=== PATIENT | male | born 1960 ===

== ENCOUNTER 2018-05-22 23:58 | Emergency (ER) | payer OTHER ==
--- NOTE | 2018-05-23 00:24 | C.PDOC ---
History Of Present Illness 58 year old male presents to the ED c/o acute urinary retention, last voided 4-5 hours ago. Patient describes his pain as 5/10. Patient denies fever, chills, nausea, vomit, diarrhea, back pain, rash. Time Seen by Provider: 05/23/18 00:23 Chief Complaint (Nursing): Male Genitourinary History Per: Patient History/Exam Limitations: no limitations Onset/Duration Of Symptoms: Hrs (4-5) Current Symptoms Are (Timing): Still Present Quality Of Discomfort: "Pain" Recent travel outside of the [place]: No Additional History Per: Patient Past Medical History Reviewed: Historical Data, Nursing Documentation, Vital Signs Vital Signs: Last Vital Signs Temp 97.6 F 05/23/18 00:04 Pulse 82 05/23/18 00:04 Resp 20 05/23/18 00:04 BP 152/93 H 05/23/18 00:04 Pulse Ox 98 05/23/18 00:04 - Medical History PMH: No Chronic Diseases Surgical History: No Surg Hx Family History: States: No Known Family Hx - Social History Hx Alcohol Use: Yes Hx Substance Use: No - Immunization History Hx Tetanus Toxoid Vaccination: No Hx Influenza Vaccination: No Hx Pneumococcal Vaccination: No Review Of Systems Constitutional: Negative for: Fever, Chills Respiratory: Negative for: Cough, Shortness of Breath Gastrointestinal: Positive for: Abdominal Pain. Negative for: Nausea, Vomiting Genitourinary: Negative for: Dysuria, Hematuria Musculoskeletal: Negative for: Back Pain Neurological: Negative for: Weakness, Numbness, Headache Physical Exam - Physical Exam Appears: Non-toxic, No Acute Distress Skin: Warm, Dry Head: Normacephalic Eye(s): bilateral: Normal Inspection Oral Mucosa: Moist Neck: Supple Chest: Symmetrical Cardiovascular: Rhythm Regular Respiratory: No Rales, No Rhonchi, No Wheezing Gastrointestinal/Abdominal: Soft, Tenderness (suprapubic), Distention (bladder), No Guarding, No Rebound Back: No CVA Tenderness Extremity: Bilateral: Atraumatic, Normal Color And Temperature, Normal ROM Neurological/Psych: Oriented x3, Normal Speech, Normal Cognition Gait: Steady ED Course And Treatment O2 Sat by Pulse Oximetry: 98 (ON RA) Pulse Ox Interpretation: Normal Progress Note: Plan: - UA. Placed 20 [place] caballero obtained approxiatelly 900 cc of clear urine. Patient is much improved after caballero was inserted, pain resolved. Disposition Counseled Patient/Family Regarding: Studies Performed, Diagnosis, Need For Followup - Disposition Referrals: Humberto Washington Jr., MD [Staff Provider] - Disposition: HOME/ ROUTINE Disposition Time: 00:23 Condition: FAIR Additional Instructions: Por favor regrese si los sntomas recurren Instructions: How to Care for Your Caballero Catheter, Male, Caballero Catheter, Male, Urinary Retention (DC) Forms: [employer] (Algerian) - Clinical Impression Clinical Impression: Acute urinary retention - Scribe Statement The provider has reviewed the documentation as recorded by the Scribe Judson Covarrubias All medical record entries made by the Scribe were at my direction and personally dictated by me. I have reviewed the chart and agree that the record accurately reflects my personal performance of the history, physical exam, medical decision making, and the department course for this patient. I have also personally directed, reviewed, and agree with the discharge instructions and disposition.
[2018-05-23 00:46] LABS: URINE BACTERIA RARE (<OCC); URINE BILIRUBIN NEGATIVE (NEGATIVE); URINE BLOOD NEGATIVE (NEGATIVE); URINE CLARITY Clear (Clear); URINE COLOR Straw (YELLOW); URINE GLUCOSE (UA) NORMAL (Normal); URINE LEUKOCYTE ESTERASE NEG Leu/uL (Negative); URINE PROTEIN NEGATIVE (NEGATIVE); URINE UROBILINOGEN NORMAL mg/dL (0.2-1.0)
[2018-05-23 01:39] VITALS: BP 122/75; PULSE 80; RESP 16; TEMP 97.8; O2SAT 99
== END 2018-05-23 01:37 | disposition home or self-care (01) ==
LOC: C.ER 23:58 → MERGE 23:58 → C.ER 05-23 01:37
DX: R33.9 Retention of urine, unspecified (principal)